=== PATIENT | male | born 1960 | race African-American/Black ===

== ENCOUNTER 2021-03-14 13:19 | Inpatient (IN) | payer BC ==
[~2021-03-14] VITALS: Ht 167.6 cm; Wt 95.3 kg
[2021-03-14 14:45] LABS: HEMATOCRIT. 38.4 % (42.0-52.0); HEMOGLOBIN. 13.4 g/dL (14.0-18.0); MEAN CORPUSCULAR HEMOGLOBIN 31.7 pg (28.0-32.0); MEAN CORPUSCULAR VOLUME 90.9 fL (80.0-94.0); MEAN PLATELET VOLUME 8.6 fl (7.4-10.4); PLATELET 204 x1000/uL (130-400); RED BLOOD CELL COUNT 4.22 mill/uL (4.7-6.1); RED CELL DISTRIBUTION WIDTH 11.9 % (11.6-14.6)
[2021-03-14 14:51] LABS: CHLORIDE 86 mEq/L (98-107)
[2021-03-14] MEDS ORDERED: DEXAMETHASONE 4MG/ML 1ML VIAL IV ONE (16:00)
[2021-03-14] MEDS ORDERED: POTASSIUM CHLORIDE 20MEQ TABLET SR PO ONE (16:15)
[2021-03-14 16:33] LABS: PLATELET ESTIMATE NORMAL
[2021-03-14 16:41] LABS: BG BASE EXCESS 8.4 mmol/L (-2.0-2.0); BG CARBOXYHEMOGLOBIN 1.3 % (0.5-1.5); BG DEOXYHEMOGLOBIN 8.1 % (0.0-5.0); BG FRACTION INSPIRED OXYGEN 44; BG HCO3 ACT 31.5 mmol/L (22.0-26.0); BG METHEMOGLOBIN 0.2 % (0.0-1.5); BG OXYGEN SATURATION 91.8 % (92.0-98.5); BG OXYHEMOGLOBIN 90.4 % (94.0-97.0); BG PCO2 38.3 mmHg (35.0-45.0); BG PH 7.533 (7.350-7.450); BG PO2 59.6 mmHg (75.0-100.0); BG SAMPLE SITE RIGHT RADIAL; BG TOTAL HEMOGLOBIN 14.2 g/dL (12.0-18.0); BG VENT MODE NASAL CANNULA
[2021-03-14] MEDS ORDERED: ACETAMINOPHEN 325MG TABLET PO PRN (23:15)
[2021-03-14] MEDS ORDERED: HYDROCODONE/ACETAMINOPHEN 5/325MG TABLET PO PRN (23:15)
[2021-03-14] MEDS ORDERED: TEMAZEPAM 15MG CAPSULE PO PRN (23:15)
[2021-03-14] MEDS ORDERED: LOSA1TAB40 PO (23:41)
[2021-03-15] VITALS (8 sets, daily range): BP systolic 102–122; BP diastolic 60–79
[2021-03-15] MEDS ORDERED: CEFTRIAXONE 1,000 MG in DEXTROSE 5% WATER 50 ML IV SCH ×2 (01:00→20:00)
[2021-03-15] MEDS ORDERED: SODIUM CHL 0.9% + KCL 20MEQ/L 1,000 ML IV SCH (01:00)
[2021-03-15] MEDS: ENOXAPARIN 30MG/0.3ML SYR SUBCUT SCH ×2 (01:17→08:09)
[2021-03-15] MEDS: AZITHROMYCIN 500 MG in DEXT 5% WATER 250 ML IV SCH (01:18)
[2021-03-15 02:54] LABS: BASOPHILS % 0.7 % (0.0-2.0); HEMATOCRIT. 37.5 % (42.0-52.0); HEMOGLOBIN. 12.6 g/dL (14.0-18.0); LYMPHOCYTES % 8.4 % (20.0-50.0); MEAN CORPUSCULAR HEMOGLOBIN 30.7 pg (28.0-32.0); MEAN CORPUSCULAR VOLUME 91.1 fL (80.0-94.0); MEAN PLATELET VOLUME 9.3 fl (7.4-10.4); MONOCYTES % 10.2 % (2.0-8.0); NEUTROPHILS % 80.7 % (40.0-76.0); PLATELET 237 x1000/uL (130-400); RED BLOOD CELL COUNT 4.12 mill/uL (4.7-6.1)
[2021-03-15 03:01] LABS: CHLORIDE 89 mEq/L (98-107)
[2021-03-15 03:08] LABS: LDL CHOLESTEROL 83 mg/dL (5-100)
[2021-03-15 03:09] LABS: HDL CHOLESTEROL 36 mg/dL (40-59)
[2021-03-15] MEDS: FAMOTIDINE 20MG TABLET PO SCH ×2 (08:08→16:29)
[2021-03-15] MEDS ORDERED: DEXAMETHASONE 10 MG/ML VIAL IV SCH (09:00)
[2021-03-15] MEDS ORDERED: POTASSIUM CHLORIDE 20MEQ TABLET SR PO NR (09:30)
[2021-03-15 10:48] LABS: BG BASE EXCESS 7.3 mmol/L (-2.0-2.0); BG CARBOXYHEMOGLOBIN 0.8 % (0.5-1.5); BG DEOXYHEMOGLOBIN 6.8 % (0.0-5.0); BG HCO3 ACT 31.3 mmol/L (22.0-26.0); BG METHEMOGLOBIN 0.1 % (0.0-1.5); BG OXYGEN SATURATION 93.1 % (92.0-98.5); BG OXYHEMOGLOBIN 92.3 % (94.0-97.0); BG PCO2 41.9 mmHg (35.0-45.0); BG PH 7.491 (7.350-7.450); BG SAMPLE SITE RIGHT RADIAL; BG TOTAL HEMOGLOBIN 13.6 g/dL (12.0-18.0); BG VENT MODE MASK - SIMPLE
[2021-03-15] MEDS ORDERED: METOPROLOL TARTRATE 25MG TABLET PO NR (11:00)
[2021-03-15] MEDS ORDERED: INFLUENZA VACCINE 05/PF 0.5 ML SYRINGE IM ONE (12:00)
[2021-03-15] MEDS ORDERED: PNEUMOCOCCAL 23-VAL P-SAC VAC 0.5 ML IM ONE (12:00)
[2021-03-15 17:34] LABS: CHLORIDE 93 mEq/L (98-107); HEMATOCRIT. 37.3 % (42.0-52.0); HEMOGLOBIN. 12.4 g/dL (14.0-18.0); MEAN CORPUSCULAR HEMOGLOBIN 30.4 pg (28.0-32.0); MEAN CORPUSCULAR VOLUME 91.7 fL (80.0-94.0); PLATELET 286 x1000/uL (130-400); RED BLOOD CELL COUNT 4.07 mill/uL (4.7-6.1); RED CELL DISTRIBUTION WIDTH 12.2 % (11.6-14.6)
[2021-03-15 17:37] LABS: PROTHROMBIN TIME 10.7 sec (9.6-11.0)
[2021-03-15] MEDS ORDERED: ENOXAPARIN 100MG/ML SYR SUBCUT SCH (18:00)
[2021-03-15 20:06] LABS: PLATELET ESTIMATE NORMAL
[2021-03-15] MEDS ORDERED: METOPROLOL TARTRATE 25MG TABLET PO SCH (21:00)
[2021-03-15] MEDS ORDERED: AZITHROMYCIN 500MG in DEXTROSE 5% WATER 250ML IV SCH (21:00)
[2021-03-16] VITALS: BP 99/60
[2021-03-16] MEDS: AZITHROMYCIN 500 MG in DEXT 5% WATER 250 ML IV SCH (02:00)
== END 2021-03-16 02:30 | disposition short-term general hospital (02) | DRG 871 ==
LOC: ER 13:19 → EDBEDREQ 13:58 → 7WST 17:01 → EDBEDREQTM 18:38 → EDBEDREQ 18:38 → ENRESERV 20:28
PROVIDERS: ADMIT Internal Medicine; ATTEND Internal Medicine
DX: A41.89 Other specified sepsis (principal); U07.1 COVID-19; J12.82 Pneumonia due to coronavirus disease 2019; D68.59 Other primary thrombophilia; E87.1 Hypo-osmolality and hyponatremia; I48.92 Unspecified atrial flutter; N17.9 Acute kidney failure, unspecified; I10 Essential (primary) hypertension; R09.02 Hypoxemia; D64.9 Anemia, unspecified; R06.03 Acute respiratory distress; R74.01 Elevation of levels of liver transaminase levels; R73.9 Hyperglycemia, unspecified
CPT/HCPCS: 36415; 36600; 71045; 80048; 80053; 80061; 82375; 82805; 84484; 85025; 85379; 93005; 99285; J0456; J0696; J1100; J1650; J3480; J7060; U0003; U0005